=== PATIENT | female | born 1960 | race Caucasian/White ===

== ENCOUNTER 2020-04-02 09:17 | Emergency (ER) | payer OTHER ==
[2020-04-02 09:36] VITALS: BP 104/58; PULSE 80; TEMP 97.8
[2020-04-02] MEDS ORDERED: methylPREDNISolone SOD SUCCI 125 MG/2 ML VIAL IV STA (09:57)
[2020-04-02] MEDS ORDERED: cefTRIAXone IN SWFI 1,000 MG/10 ML SYRINGE IVP STA (09:58)
--- NOTE | 2020-04-02 10:03 | ED ---
Skin/Abscess/FB HPI - General Chief complaint: Skin/Abscess/Foreign Body Stated complaint: Skin irritation Time Seen by Provider: 04/02/20 09:36 Source: patient, RN notes reviewed, old records reviewed Mode of arrival: ambulatory Limitations: no limitations - History of Present Illness Initial comments: Pleasant 59-year-old female presents emergency department today with right forearm irritation. She reports she noticed a small area of redness irritation and itching on Monday. She went to an urgent care who placed her on Bactrim and antibiotic cream. Patient reportedly thinks that it was related to a spider bite at that time. Patient states she does do a lot of work outside in the yard. Patient states that after taking the antibiotics since Monday she's noticed increased redness and swelling up the arm. She reports somewhat pruritic. She also complains the new area of rash underneath the right breast. Patient has been putting mupirocin on these areas. She denies any other significant complaints including fevers or chills. - Related Data Previous Rx's Medication Instructions Recorded predniSONE 50 mg PO DAILY #7 tab 04/02/20 Allergies Allergy/AdvReac Type Severity Reaction Status Date / Time No Known Allergies Allergy Verified 04/02/20 09:37 Review of Systems ROS Statement: Those systems with pertinent positive or pertinent negative responses have been documented in the HPI. ROS Other: All systems not noted in ROS Statement are negative. Past Medical History Past Medical History: No Reported History History of Any Multi-Drug Resistant Organisms: None Reported Additional Past Surgical History / Comment(s): ovarian cyst removal Past Psychological History: No Psychological Hx Reported Smoking Status: Never smoker Past Alcohol Use History: Occasional Past Drug Use History: None Reported General Exam - General Exam Comments Initial Comments: 59-year-old female. No distress. Limitations: no limitations General appearance: alert, in no apparent distress Head exam: Present: atraumatic, normocephalic, normal inspection Eye exam: Present: normal appearance, PERRL, EOMI. Absent: scleral icterus, conjunctival injection, periorbital swelling ENT exam: Present: normal exam, mucous membranes moist Neck exam: Present: normal inspection. Absent: tenderness, meningismus, lymphadenopathy Respiratory exam: Present: normal lung sounds bilaterally, other (Patient has erythema over the right forearm with evidence of small blisters ). Absent: respiratory distress, wheezes, rales, rhonchi, stridor Cardiovascular Exam: Present: regular rate, normal rhythm, normal heart sounds. Absent: systolic murmur, diastolic murmur, rubs, gallop, clicks GI/Abdominal exam: Present: soft, normal bowel sounds. Absent: distended, tenderness, guarding, rebound, rigid Extremities exam: Present: normal inspection, full ROM, normal capillary refill. Absent: tenderness, pedal edema, joint swelling, calf tenderness Back exam: Present: normal inspection Neurological exam: Present: alert, oriented X3, CN II-XII intact Psychiatric exam: Present: normal affect, normal mood Skin exam: Present: warm, dry, intact, normal color. Absent: rash Course Vital Signs 04/02/20 09:29 Temperature 97.8 F Pulse Rate 80 Respiratory 17 Rate Blood Pressure 104/58 O2 Sat by Pulse 98 Oximetry Medical Decision Making - Medical Decision Making 51-year-old female presents to the ER today for evaluation with complaints of right arm irritation and irritation underneath the right breast. She reports she initially thought it was related to spider bite. Was started on antibiotics and mupirocin ointment last week. She reports the area now the past couple is a spread over her right under her breast. Patient states some of periodic. At this time rash is consistent with contact dermatitis specially with area that it spread. Less concerning for cellulitis. I had the Patient evaluated by Dr. Ruelas who also agreed since we consistent with a contact dermatitis from possible poison oak or poison sumac. Advised Patient to start on steroids. Was given a dose of Rocephin and Solu-Medrol emergency department. I advised her to continue Keflex and to follow-up with PCP dermatology. All questions answered. - Lab Data Result diagrams: 04/02/20 10:17 Lab Results 04/02/20 Range/Units 10:17 WBC 2.8 L (3.8-10.6) k/uL RBC 4.32 (3.80-5.40) m/uL Hgb 12.4 (11.4-16.0) gm/dL Hct 36.8 (34.0-46.0) % MCV 85.2 (80.0-100.0) fL MCH 28.7 (25.0-35.0) pg MCHC 33.7 (31.0-37.0) g/dL RDW 12.8 (11.5-15.5) % Plt Count 93 L (150-450) k/uL - Radiology Data Radiology results: report reviewed Disposition Clinical Impression: Contact dermatitis Disposition: HOME SELF-CARE Condition: Good Instructions (If sedation given, give patient instructions): Contact Dermatitis (ED) Additional Instructions: Patient advised to keep the area clean and dry. Patient can apply a dressing ov er top of this when active. Patient should complete the Keflex prescription and at the steroid starting tomorrow. Following up with PCP in dermatology. Patient to take pictures and record reaction of the rash within the next few days. Prescriptions: predniSONE 50 mg PO DAILY #7 tab Is patient prescribed a controlled substance at d/c from ED?: No Referrals: None,Stated [REFERRING] - 1-2 days Jayce Calvo MD [STAFF PHYSICIAN] - 1-2 days Time of Disposition: 11:22
[2020-04-02 10:51] LABS: HCT 36.8 % (34.0-46.0); HGB 12.4 gm/dL (11.4-16.0); MCH 28.7 pg (25.0-35.0); MCHC 33.7 g/dL (31.0-37.0); MCV 85.2 fL (80.0-100.0); Mean Platelet Volume 8.8; RBC 4.32 m/uL (3.80-5.40); RDW 12.8 % (11.5-15.5); WBC 2.8 k/uL (3.8-10.6)
[2020-04-02 11:13] LABS: Platelet Count 93 k/uL (150-450)
[2020-04-02 11:32] VITALS: RESP 16
== END 2020-04-02 11:39 | disposition home or self-care (01) ==
LOC: EC 09:17
DX: L25.9 Unspecified contact dermatitis, unspecified cause (principal)
CPT/HCPCS: 36415; 85027; 99283; 96374; 96375; J2930; J0696

== ENCOUNTER 2021-10-21 08:22 | Day surgery (SDC) | payer BC ==
[2021-10-19 15:19] VITALS: BMI 23.3
[~2021-10-21 08:22] MED LIST: LACTATED RINGERS 1,000 ML IV SCH; LIDOCAINE 1% (10MG/ML) FOR IV START INTRADERMA PRN
[2021-10-21 09:26] VITALS: RESP 16; TEMP 97.4
[2021-10-21] MEDS ORDERED: MIDAZOLAM 2 MG/2 ML VIAL ONE (10:35)
[2021-10-21] MEDS ORDERED: LIDOCAINE 2% INJ 20 MG/ML (2 ML VIAL) ONE (10:35)
[2021-10-21] MEDS ORDERED: PROPOFOL 10 MG/ML 20 ML VIAL IV ONE (10:35)
[2021-10-21] MEDS ORDERED: fentaNYL (PF) 50 MCG/ML 2 ML AMP ONE (10:35)
--- NOTE | 2021-10-21 10:40 | P.GSHP ---
History of Present Illness H&P Date: 10/21/21 Chief Complaint: Screening colonoscopy This a 61-year-old female been safe for screening colonoscopy. Patient denies any significant GI complaints. Past Medical History Past Medical History: No Reported History Additional Past Medical History / Comment(s): SOME BLOOD IN THE STOOL History of Any Multi-Drug Resistant Organisms: None Reported Additional Past Surgical History / Comment(s): ovarian cyst removal Past Anesthesia/Blood Transfusion Reactions: No Reported Reaction Smoking Status: Never smoker - Past Family History Mother Family Medical History: Cancer Additional Family Medical History / Comment(s): BREAST CANCER Medications and Allergies Home Medications Medication Instructions Recorded Confirmed Type No Known Home Medications 10/19/21 10/21/21 History Allergies Allergy/AdvReac Type Severity Reaction Status Date / Time No Known Allergies Allergy Verified 10/21/21 09:22 Surgical - Exam Vital Signs Temp Pulse Resp BP Pulse Ox 97.4 F L 69 16 127/72 100 10/21/21 09:25 10/21/21 09:25 10/21/21 09:25 10/21/21 09:25 10/21/21 09:25 - General well developed, well nourished, no distress - Eyes PERRL - ENT normal pinna, normal nares - Neck no masses - Respiratory normal expansion - Cardiovascular Rhythm: regular - Abdomen Abdomen: soft, non tender Assessment and Plan Assessment: We'll perform screening colonoscopy
--- NOTE | 2021-10-21 10:53 | P.OP ---
Date of Procedure: 10/21/21 Preoperative Diagnosis: Screening colonoscopy Postoperative Diagnosis: Rectal mass pathology pending Procedure(s) Performed: Colonoscopy Anesthesia: MAC Surgeon: Serg Victor Pathology: other Condition: stable Disposition: PACU Operative Findings: Friable rectal mass Description of Procedure: She'll placed on the endoscopy table in the lateral position. She received IV sedation. Digital rectal exam was performed. This revealed no ebonized. Flexible colonoscope was then placed patient anus and passed into the colon. At the 17 cm sharda there was a rectal mass which was completely occluding the lumen of the colon. The mass was friable. Several biopsies of the mass performed with cold forcep. Scope could not passed beyond the mass due to occlusion lumen. Scope was then withdrawn. Patient sent to recovery in stable condition.
[2021-10-21 11:53] VITALS: BP 110/56; PULSE 62
[2021-10-21 13:23] LABS: Basophils # (A) 0.1 k/uL (0-0.2); Basophils % (A) 1 %; Eosinophils # (A) 0.2 k/uL (0-0.7); Eosinophils % (A) 2 %; HCT 36.5 % (34.0-46.0); HGB 11.5 gm/dL (11.4-16.0); Lymphocytes # (A) 1.6 k/uL (1.0-4.8); Lymphocytes % (A) 21 %; MCH 27.4 pg (25.0-35.0); MCHC 31.4 g/dL (31.0-37.0); MCV 87.2 fL (80.0-100.0); Mean Platelet Volume 8.5; Monocytes # (A) 0.5 k/uL (0-1.0); Monocytes % (A) 6 %; Neutrophils # (A) 5.5 k/uL (1.3-7.7); Neutrophils % (A) 69 %; Platelet Count 219 k/uL (150-450); RBC 4.19 m/uL (3.80-5.40); RDW 13.1 % (11.5-15.5)
[2021-10-21 13:30] LABS: ALT 44 U/L (4-34); AST 38 U/L (14-36); African American GFR (CKD) >90 (>60 ml/min/1.73 sqM); Albumin 4.2 g/dL (3.5-5.0); Alkaline Phosphatase 117 U/L (38-126); Anion Gap 5 mmol/L; Blood Urea Nitrogen 9 mg/dL (7-17); Calcium 9.2 mg/dL (8.4-10.2); Carbon Dioxide 32 mmol/L (22-30); Chloride 102 mmol/L (98-107); Glucose 89 mg/dL (74-99); Non-African American GFR(CKD) 83 (>60 ml/min/1.73 sqM); Potassium 3.8 mmol/L (3.5-5.1); Sodium 139 mmol/L (137-145); Total Bilirubin 0.4 mg/dL (0.2-1.3); Total Protein 7.4 g/dL (6.3-8.2)
== END 2021-10-21 13:02 | disposition home or self-care (01) ==
LOC: ORWHC2ENDO 08:22
PROVIDERS: ATTEND Surgery
DX: Z12.11 Encounter for screening for malignant neoplasm of colon (principal); Z80.3 Family history of malignant neoplasm of breast
CPT/HCPCS: 45380; 88305; 80053; 82378; 85025; J2250; J3010; J2704; J2001

== ENCOUNTER → 2021-10-27 | Outpatient (CLI) | payer BC ==
--- NOTE | 2021-10-28 06:45 | CT ---
EXAMINATION TYPE: CT abdomen pelvis w con DATE OF EXAM: 10/27/2021 HISTORY: RECTAL CA CT DLP: 548.60mGycm Automated Exposure Control for Dose Reduction was Utilized. CONTRAST: CT scan of the abdomen and pelvis is performed with IV Contrast, patient injected with 100 mL of Isov ue 300. COMPARISON: None. FINDINGS: LUNG BASES: No significant abnormality is appreciated. LIVER/GB: Heterogeneous hypodense masses consistent with metastatic disease are identified. Approxima tely 10 distinct lesions are seen. Largest left hepatic lobe measures 5.8 cm long axis axial image 14 and in the posterior right hepatic lobe measures 5.7 cm long axis axial image 12. No biliary dilatat ion. PANCREAS: No significant abnormality is seen. SPLEEN: No significant abnormality is seen. ADRENALS: Nonspecific nodular thickening to both adrenal glands more prominent on the left. KIDNEYS: No significant abnormality is seen. BOWEL: Oral contrast reaches level of right colon making evaluation of distal bowel slightly suboptim al. There is no suspicious small or large bowel dilatation. Normal-appearing appendix is seen. Mild c olonic fecal prominence. Slight redundancy of the sigmoid colon. Poor distention of rectum, anterior mass or lesion may be present axial image 81. UTERUS/ADNEXA: Prominent heterogeneous lobulated uterus with areas of calcification felt to reflect f ibroid type uterus. Occasional scattered pelvic phleboliths. LYMPH NODES: No greater than 1cm abdominal or pelvic lymph nodes are appreciated. OSSEOUS STRUCTURES: Mild axial joint space loss in both hips. Mild to moderate disc space narrowing w ith vacuum disc phenomenon L4-L5 level. OTHER: No significant additional abnormality is seen. IMPRESSION: 1. Poorly visualized primary neoplasm in the rectum possibly due to poor distention at this level. Th ere is note made of hepatic metastatic disease.
== END | disposition home or self-care (01) ==
LOC: RADCTMAIN 14:57
PROVIDERS: ATTEND Surgery
DX: C20 Malignant neoplasm of rectum (principal)
CPT/HCPCS: 74177; Q9967

== ENCOUNTER → 2022-03-04 | Outpatient (CLI) | payer BC ==
--- NOTE | 2022-03-07 06:57 | PE ---
EXAMINATION TYPE: PET CT fusion skull to thigh DATE OF EXAM: 03/04/2022 COMPARISON: CT chest abdomen and pelvis February 17, [address] October 27, 2021 HISTORY: Malignant neoplasm descending colon. Colorectal cancer with hepatic metastatic disease odilia gnosed October 2021 TECHNIQUE: Following the intravenous administration of 11.1 mCi of F-18 FDG, whole body images are p erformed from the skull base to the midthigh. Images are reviewed on the computer in the coronal, ax ial, and sagittal planes. Reconstructed rotating images are created on independent workstation and r eviewed on the computer. A localization and attenuation correction CT is performed in conjunction w ith the PET scan. Blood glucose level equals 80 SCAN: Initial Scan FINDINGS: SKULL BASE AND NECK: No areas of abnormal hypermetabolic uptake. CHEST, MEDIASTINUM, AND HILAR REGION: No areas of abnormal hypermetabolic uptake. ABDOMEN AND PELVIS: Persistent heterogeneous hypodense metastatic lesions. Left hepatic lobe lesion m easures 6.5 cm long axis axial image 116 and right hepatic lobe lesion measures approximately 5.5 cm long axis axial image 111. There are ametabolic currently. Left hepatic lobe lesion has some mild janet rounding 4 peripheral hypermetabolic uptake, max SUV is 3.97. Several smaller hypodense lesions measu ring under 2.0 cm in size are redemonstrated seen better on recent diagnostic CT. No hypermetabolic l esions present. Nonspecific mild bowel uptake near the hepatic flexure and involving portions of right colon. Left-si ded colostomy redemonstrated. Normal excretion. No areas of abnormal hypermetabolic uptake. OSSEOUS STRUCTURES: No areas of abnormal hypermetabolic uptake. OTHER CT: There is right subclavian Mediport catheter terminating in SVC. Lobulated partially calcified enlarged fibroid type uterus. IMPRESSION: Known hepatic metastatic disease is identified. Possible some mild peripheral hypermetabo lic uptake in the left hepatic lobe lesion otherwise no Areas of abnormal hypermetabolic uptake in the neck, thorax, or pelvis.
== END | disposition home or self-care (01) ==
LOC: RADPETMAIN 14:57
PROVIDERS: ATTEND Internal Medicine Hematology & Oncology
DX: C18.6 Malignant neoplasm of descending colon (principal)
CPT/HCPCS: 78815; A9552

== ENCOUNTER → 2022-05-06 | Outpatient (CLI) | payer BC ==
[2022-05-06 18:09] LABS: African American GFR (CKD) 92.2 (60.0-200.0); Blood Urea Nitrogen 14.9 mg/dL (9.0-27.0); Non-African American GFR(CKD) 79.6 (60.0-200.0)
== END | disposition home or self-care (01) ==
LOC: LABWHC1 12:26
PROVIDERS: ATTEND Colon & Rectal Surgery
DX: C20 Malignant neoplasm of rectum (principal)
CPT/HCPCS: 36415; 82565; 84520